=== PATIENT | male | born 1995 | race Two or more races ===

== ENCOUNTER 2023-02-05 21:20 | Emergency (ER) | payer OTHER ==
[~2023-02-05] VITALS: Ht 167.6 cm; Wt 80.0 kg
[2023-02-05] MEDS ORDERED: LORazepam 2MG/ML-1ML VIAL IM ONE (21:45)
[2023-02-06 04:51] VITALS: BP 107/68; TEMP 98.6
[2023-02-06] MEDS ORDERED: ACETAMINOPHEN 325 MG TAB PO ONE (05:00)
[2023-02-06 08:27] VITALS: PULSE 128; RESP 30; O2SAT 99
[2023-02-06] MEDS ORDERED: HYDR50CA PO (09:12)
== END 2023-02-06 09:34 | disposition home or self-care (01) ==
LOC: ER 21:20 → EDBD 21:20 → ER 02-06 09:33
DX: F41.1 Generalized anxiety disorder (principal)
CPT/HCPCS: 96372; 99283; J2060